=== PATIENT | male | born 2000 | race African-American/Black ===

== ENCOUNTER 2021-10-22 21:58 | Emergency (ER) | payer OTHER ==
[~2021-10-22] VITALS: Ht 172.7 cm; Wt 57.6 kg
[2021-10-23 01:33] LABS: ABSOLUTE NEUTROPHILS 3.8 thou/uL (1.4-8.2); BASOPHILS 1.2 % (0.0-2.0); EOSINOPHILS 1.2 % (0.0-3.0); HEMATOCRIT 44.4 % (42.0-52.0); MCH 29.3 pg (26.0-34.0); MCHC 33.7 g/dL (28.0-37.0); MONOCYTES 9.6 % (1.0-8.0); PLATELET COUNT 221 thou/uL (150-400); RDW 13.3 % (10.5-14.5); WBC 6.6 thou/uL (4.0-11.0)
[2021-10-23 01:43] LABS: ANION GAP 11 mmol/L (7-16); BUN 11 mg/dL (7-18); CALCIUM 9.1 mg/dL (8.5-10.1); CHLORIDE 104 mmol/L (98-107); CO2 24 mmol/L (21-32); CREATININE 0.9 mg/dL (0.7-1.3); GLUCOSE 98 mg/dL (74-106); POTASSIUM 3.5 mmol/L (3.5-5.1); SODIUM 139 mmol/L (136-145)
[2021-10-23 01:48] LABS: SGOT 17 U/L (15-37); SGPT 10 U/L (16-63); TOTAL BILIRUBIN 0.8 mg/dL (0.2-1.0); TOTAL PROTEIN 7.5 g/dL (6.4-8.2)
[2021-10-23 02:15] LABS: SALICYLATE < 2.8 mg/dL (2.8-20.0)
[2021-10-23 02:22] LABS: URINE BILIRUBIN NEGATIVE (Negative); URINE BLOOD NEGATIVE (Negative); URINE CLARITY CLEAR; URINE COLOR YELLOW; URINE GLUCOSE-RANDOM* NEGATIVE (Negative); URINE KETONES NEGATIVE (Negative); URINE LEUKOCYTES-REFLEX NEGATIVE (Negative); URINE NITRITE-REFLEX NEGATIVE (Negative); URINE PROTEIN (DIPSTICK) NEGATIVE (Negative); URINE UROBILINOGEN 0.2 E.U./dl (0.2-1.0)
[2021-10-23 02:29] LABS: AMP/METHAMP Negative (Negative); BARBITURATES Negative (Negative); BENZODIAZEPINES Negative (Negative); COCAINE Negative (Negative); METHADONE Negative (Negative); OPIATES Negative (Negative); PCP Negative (Negative)
[2021-10-23 04:20] VITALS: BP 125/82
--- NOTE | 2021-10-23 07:17 | EKG ---
[address] [address] ELECTROCARDIOGRAM REPORT Name: MAYRA WOODY Room #: DEP ESTEFANÍA Garcia#: [id number] Admission: 10/22/21 Attend Phys: Discharge: 10/23/21 Date of : [birth year] Report #: [id number] [facility] ED Test Date: 2021-10-22 Test Time: 22:50:09 Pat Name: MAYRA WOODY Department: Room: Gender: M Painter Plate: shyam : 2000 Requested By: Qasim Garrison Order Number: [id number] MD: Cristian Arnett Measurements Intervals [place] Rate: 72 P: 56 WA: 153 QRS: 83 QRSD: 85 T: 31 QT: 380 QTc: 416 Interpretive Statements Sinus rhythm ST elev, probable normal early repol pattern No previous ECG available for comparison Electronically Signed On 10-23-2021 7:17:48 RADIO MACHINIST by Cristian Arnett [email or web address] <ELECTRONICALLY SIGNED> By: Cristian Arnett MD, [facility] 10/23/21 0717 2250 2250 Cristian Arnett MD, FACC /EPI
== END 2021-10-23 04:22 | disposition home or self-care (01) ==
LOC: ER 21:58
PROVIDERS: Emergency Medicine
DX: T39.1X1A Poisoning by 4-Aminophenol derivatives, accidental (unintentional), initial encounter (principal); Z20.822 Contact with and (suspected) exposure to COVID-19; Z90.49 Acquired absence of other specified parts of digestive tract; Y92.89 Other specified places as the place of occurrence of the external cause